=== PATIENT | male | born 1985 | race Caucasian/White ===

== ENCOUNTER 2017-01-01 08:00 | Emergency (ER) | payer SELFPAY ==
[~2017-01-01] VITALS: Ht 208.3 cm; Wt 89.7 kg
[2017-01-01 08:03] VITALS: BP 105/63
[2017-01-01] MEDS ORDERED: BUPIVACAINE 0.25% ONE (08:26)
[2017-01-01] MEDS ORDERED: BUPIVACAINE/PF-EPI 0.25% 1:200K SQ ONE (08:30)
[2017-01-01] MEDS ORDERED: LIDOCAINE 1%, 20ML ONE (09:28)
== END 2017-01-01 10:46 | disposition home or self-care (01) ==
LOC: ED 09:22
DX: L02.416 Cutaneous abscess of left lower limb (principal)
CPT/HCPCS: 10060

== ENCOUNTER 2017-01-03 13:28 | Emergency (ER) | payer SELFPAY ==
[~2017-01-03] VITALS: Ht 208.3 cm; Wt 88.4 kg
[2017-01-03 13:30] VITALS: BP 108/69
== END 2017-01-03 14:19 | disposition home or self-care (01) ==
LOC: ED 14:13
DX: L02.31 Cutaneous abscess of buttock (principal)
CPT/HCPCS: 99282

== ENCOUNTER 2018-04-26 10:52 | Emergency (ER) | payer SELFPAY ==
[~2018-04-26] VITALS: Ht 208.3 cm; Wt 100.7 kg
[2018-04-26 10:59] VITALS: BP 129/78
[2018-04-26] MEDS ORDERED: LIDOCAINE 1%-EPI 1:100K, 30ML ONE (11:14)
[2018-04-26] MEDS ORDERED: CEFAZOLIN 1,000 MG ONE (11:27)
[2018-04-26] MEDS ORDERED: SULFAMETH./TRIMETHOPRIM DS 800MG/160MG TABLET ONE (11:27)
[2018-04-26] MEDS ORDERED: LIDOCAINE 1%-EPI 1:100K, 20ML SQ ONE (11:30)
[2018-04-26] MEDS ORDERED: SULFAMETH./TRIMETHOPRIM DS 800MG/160MG TABLET PO ONE (11:30)
[2018-04-26] MEDS ORDERED: CEFAZOLIN 1,000 MG IM ONE (11:30)
== END 2018-04-26 12:06 | disposition home or self-care (01) ==
LOC: ED 12:00
DX: L02.31 Cutaneous abscess of buttock (principal); Z88.0 Allergy status to penicillin
CPT/HCPCS: 10060; 96372; 99283; J0690; J3490

== ENCOUNTER 2018-04-29 17:46 | Emergency (ER) | payer SELFPAY ==
[~2018-04-29] VITALS: Ht 208.3 cm; Wt 99.6 kg
[2018-04-29 18:00] VITALS: BP 128/73
== END 2018-04-29 18:47 | disposition home or self-care (01) ==
LOC: ED 18:39
DX: L02.31 Cutaneous abscess of buttock (principal); F17.200 Nicotine dependence, unspecified, uncomplicated
CPT/HCPCS: 99281